=== PATIENT | female | born 1950 | race Caucasian/White ===

== ENCOUNTER → 2017-04-21 | Outpatient (CLI) | payer MEDICARE, OTHER ==
--- NOTE | 2017-04-21 14:53 | Diagnostic Imaging Report ---
PROCEDURE:URINARY BLADDER ULTRASOUND COMPARISON:None. INDICATIONS:Chronic Kidney Disease Stage 3 CONCLUSION: Please refer to renal ultrasound performed at the same date and time for full dictated report. Curry Infante M.D. Dictated by: Curry Infante M.D. on 04/21/2017 at 14:53 Electronically approved by: Curry Infante M.D. on 04/21/2017 at 14:53
--- NOTE | 2017-04-21 14:53 | Diagnostic Imaging Report ---
PROCEDURE:US RETROPERITONEAL ( KIDNEY ). COMPARISON:None. INDICATIONS:Chronic Kidney Disease Stage 3 TECHNIQUE: Clemente-scale and color sonographic images of the bilateral kidneys and bladder where obtained in transverse and longitudinal planes. FINDINGS: RIGHT KIDNEY: 9.2 cm, cortex 1.5 cm Cysts: 1.9 x 1.5 x 1.8 cm cystic, anechoic nonvascular lesion in the mid lateral aspect Solid masses: None Stones: None Hydronephrosis: None Echogenicity: Normal LEFT KIDNEY: 8.9 cm, cortex 1.5 cm Cysts: None Solid masses: None Stones: None Hydronephrosis: None Echogenicity: Normal Bladder: 1.6 x 0.7 x 1.6 cm non-mobile focal solid lesion extending into the bladder lumen from the right lateral wall, which shows no vascularity or calcification. Bilateral ureteral jets are identified. Prevoid bladder volume 19.0 cc. Postvoid bladder volume 19.2 CC. CONCLUSION: 1. 1.6 cm non-mobile, focal lesion extending into the lumen from the right lateral bladder wall, which is indeterminate. Direct visualization with endoscopy is recommended to exclude neoplasm, such as TCC. 2. Left kidney and the lower limit of normal. Normal bilateral renal cortical echogenicity. 3. 1.9 cm simple appearing cyst in the right kidney. 4. No significant postvoid residual. Curry Infante M.D. Dictated by: Curry Infante M.D. on 04/21/2017 at 14:53 Electronically approved by: Curry Infante M.D. on 04/21/2017 at 14:53
== END ==
LOC: US 11:53
PROVIDERS: ATTEND Internal Medicine Nephrology
DX: N18.3 Chronic kidney disease, stage 3 (moderate) (principal); N20.0 Calculus of kidney
CPT/HCPCS: 76770; 76857

== ENCOUNTER → 2017-05-16 | Outpatient (CLI) | payer MEDICARE, OTHER ==
--- NOTE | 2017-05-16 16:47 | Diagnostic Imaging Report ---
PROCEDURE: CT ABDOMEN AND PELVIS WITHOUT CONTRAST COMPARISON:Renal ultrasound . INDICATIONS:GROSS HEMATURIA TECHNIQUE: Axial CT images through the abdomen and pelvis were obtained without IV contrast. Coronal and sagittal reformations were created. FINDINGS: Lung bases: Bibasilar chronic atelectasis or scar. The heart is normal in size and contains pacer/defibrillator wires. There is mild eventration of left diaphragm. Distal esophagus is normal. Liver: Normal attenuation without mass. Spleen: Normal in size without mass. Biliary: Nonvisualized and is likely absent. No biliary ductal dilatation Pancreas: No mass or ductal dilatation. Adrenal Glands: No mass. Kidneys: Right kidney: Calcification in the lower pole measures 4 mm. Low attenuating lesion in the lower pole measures 2 cm suggestive of a cyst. No hydronephrosis. Left kidney: There is a punctate calcification in the upper pole. No renal mass. No hydronephrosis. Vasculature: The aorta is diffusely calcified. Maximum diameter is 2.5 cm. The iliac arteries are calcified but not aneurysmally dilated. GI: The stomach is normal. Small bowel is normal in diameter with normal wall thickness. Mild/moderate of stool throughout the large bowel. The appendix is not visualized. Peritoneum/Retroperitoneum: No free fluid or fluid collection. No lymphadenopathy. Bladder: Well-distended. No intraluminal calculi or mural thickening. Reproductive organs: The uterus is absent. There are no adnexal masses. Musculoskeletal: Spinal stimulator is present entering at L2-3. There is dextroscoliosis of the lumbar spine with the apex at L3-4. The there is grade 1 anterolisthesis of L3 on L4 of approximately 6 mm. No pars defects. No compression deformities. Intramedullary mariano and pin are present in the proximal left femur. The hardware is intact without evidence of loosening. The bones are diffusely demineralized. There are no destructive lesions. Multiple soft tissue calcifications are present throughout the posterior pelvis. CONCLUSION: 1. Bilateral intrarenal calculi. No obstructive uropathy. 2. Low attenuating lesion in the right kidney suggestive of a cyst. 3. Medical devices as described above. 4. Aortic ectasia and atherosclerosis. 5. Bibasilar atelectasis or scarring. Dictated by: Palmer Silva M.D. on 05/16/2017 at 16:47 Electronically approved by: Palmer Silva M.D. on 05/16/2017 at 16:47
== END | disposition home or self-care (01) ==
LOC: CT 11:27
PROVIDERS: ATTEND Urology
DX: R31.0 Gross hematuria (principal); Z87.442 Personal history of urinary calculi; N20.0 Calculus of kidney; N39.0 Urinary tract infection, site not specified; D41.4 Neoplasm of uncertain behavior of bladder; N39.41 Urge incontinence; I77.819 Aortic ectasia, unspecified site
CPT/HCPCS: 74176

== ENCOUNTER 2017-06-06 10:00 | Observation (INO) | payer MEDICARE, OTHER ==
[2017-06-06] VITALS (34 sets, daily range): BP systolic 55–157; BP diastolic 28–93
[~2017-06-06] VITALS: Ht 166.4 cm; Wt 45.8 kg
--- OUTSIDE RECORDS SUMMARY | 2017-06-06 10:02 | XMS REPORT ---
Author Author [facility] Address Unknown Phone Unavailable Care Team Providers Care Refinery Operator Visbreaking Name Role Phone PO GUALLPA Unavailable Unavailable MICHELLE OLMOS Unavailable Unavailable Problems This patient has no known problems. Allergies, Adverse Reactions, Alerts This patient has no known allergies or adverse reactions. Medications This patient has no known medications. Results Test Description Test Time Test Comments Text Results Atomic Results Result Comments CT ABDOMEN/PELVIS WO [place] [address] Patient Name: PAU LOPEZ MR #: [id number] : 1950 Age/Sex: 67/F Req # : [id number] [facility] Physician: Ordered by: PO GUALLPA MD Report #: [id number] Location: CT Room/Bed: Procedure: [id number] CT/CT ABDOMEN/PELVIS WO Exam Date: 05/16/17 Exam Time: 1150 REPORT STATUS: Signed PROCEDURE: CT ABDOMEN AND PELVIS WITHOUT CONTRAST COMPARISON: Renal ultrasound . INDICATIONS: GROSS HEMATURIA TECHNIQUE: Axial CT images through the abdomen and pelvis were obtained without IV contrast. Coronal and sagittal reformations were created. FINDINGS: Lung bases: Bibasilar chronic atelectasis or scar. The heart is normal in size and contains pacer/defibrillator wires. There is mild eventration of left diaphragm. Distal esophagus is normal. Liver: Normal attenuation without mass. Spleen: Normal in size without mass. Biliary: Nonvisualized and is likely absent. No biliary ductal dilatation Pancreas: No mass or ductal dilatation. Adrenal Glands: No mass. Kidneys: Right kidney: Calcification in the lower pole measures 4 mm. Low attenuating lesion in the lower pole measures 2 cm suggestive of a cyst. No hydronephrosis. Left kidney: There is a punctate calcification in the upper pole. No renal mass. No hydronephrosis. Vasculature: The aorta is diffusely calcified. Maximum diameter is 2.5 cm. The iliac arteries are calcified but not aneurysmally dilated. GI: The stomach is normal. Small bowel is normal in diameter with normal wall thickness. Mild/ moderate of stool throughout the large bowel. The appendix is not visualized. Peritoneum/Retroperitoneum: No free fluid or fluid collection. No lymphadenopathy. Bladder: Well-distended. No intraluminal calculi or mural thickening. Reproductive organs: The uterus is absent. There are no adnexal masses. Musculoskeletal: Spinal stimulator is present entering at L2-3. There is dextroscoliosis of the lumbar spine with the apex at L3-4. The there is grade 1 anterolisthesis of L3 on L4 of approximately 6 mm. No pars defects. No compression deformities. Intramedullary mariano and pin are present in the proximal left femur. The hardware is intact without evidence of loosening. The bones are diffusely demineralized. There are no destructive lesions. Multiple soft tissue calcifications are present throughout the posterior pelvis. CONCLUSION: 1. Bilateral intrarenal calculi. No obstructive uropathy. 2. Low attenuating lesion in the right kidney suggestive of a cyst. 3. Medical devices as described above. 4. Aortic ectasia and atherosclerosis. 5. Bibasilar atelectasis or scarring. Dictated by: Jarett Silva M.D. on 05/16/2017 at 16:47 Electronically approved by: Jarett Silva M.D. on 05/16/2017 at 16:47 Dictated By: JARETT SILVA MD 46 Transcribed By : SUSAN on 05/16/171646 COPY TO: PO GUALLPA MD RENAL RETROPERITONEAL COMP [place] [address] Patient Name: PAU LOPEZ MR #: [id number] : 1950 Age/Sex: 67/F Req #: [id number] [facility] Physician: Ordered by: MICHELLE OLMOS MD Report #: [id number] Location: Room/Bed: Procedure: [id number] US/US RENAL RETROPERITONEAL COMP Exam Date: 04/21/17 Exam Time: 1213 REPORT STATUS: Signed PROCEDURE : US RETROPERITONEAL ( KIDNEY ). COMPARISON: None. INDICATIONS: Chronic Kidney Disease Stage 3 TECHNIQUE: Clemente-scale and color sonographic images of the bilateral kidneys and bladder where obtained in transverse and longitudinal planes. FINDINGS: RIGHT KIDNEY: 9.2 cm, cortex 1.5 cm Cysts: 1.9 x 1.5 x 1.8 cm cystic, anechoic nonvascular lesion in the mid lateral aspect Solid masses: None Stones: None Hydronephrosis: None Echogenicity: Normal LEFT KIDNEY: 8.9 cm, cortex 1.5 cm Cysts: None Solid masses: None Stones: None Hydronephrosis: None Echogenicity: Normal Bladder: 1.6 x 0.7 x 1.6 cm non-mobile focal solid lesion extending into the bladder lumen from the right lateral wall, which shows no vascularity or calcification. Bilateral ureteral jets are identified. Prevoid bladder volume 19.0 cc. Postvoid bladder volume 19.2 CC. CONCLUSION: 1. 1.6 cm non-mobile, focal lesion extending into the lumen from the right lateral bladder wall, which is indeterminate. Direct visualization with endoscopy is recommended to exclude neoplasm, such as TCC. 2. Left kidney and the lower limit of normal. Normal bilateral renal cortical echogenicity. 3. 1.9 cm simple appearing cyst in the right kidney. 4. No significant postvoid residual. Ventura Infante M.D. Dictated by: Ventura Infante M.D. on 04/21/2017 at 14:53 Electronically approved by: Ventura Infante M.D. on 04/21/2017 at 14:53 Dictated By: VENTURA INFANTE MD 52 Transcribed By: SUSAN on 04/21/171452 COPY TO: MICHELLE OLMOS MD US PELVIC (NON OB) BROWN OR F/U [place] [address] Patient Name: PAU LOPEZ MR #: [id number] : 1950 Age/Sex: 67/F Req #: [id number] Adm Physician: Ordered by: MICHELLE OLMOS MD Report #: [id number] Location: Room/Bed: Procedure: [id number] US/US PELVIC (NON OB) BROWN OR F/U Exam Date: 04/21/17 Exam Time: 1245 REPORT STATUS: Signed PROCEDURE : URINARY BLADDER ULTRASOUND COMPARISON: None. INDICATIONS: Chronic Kidney Disease Stage 3 CONCLUSION: Please refer to renal ultrasound performed at the same date and time for full dictated report. Ventura Infante M.D. Dictated by: Ventura Infante M.D. on 04/21/2017 at 14:53 Electronically approved by: Ventura Infante M.D. on 2017 at 14:53 Dictated By: VENTURA INFANTE MD 52 Transcribed By: SUSAN on 1452 COPY TO: MICHELLE OLMOS MD
--- OUTSIDE RECORDS SUMMARY | 2017-06-06 10:02 | XMS REPORT | Clinical Summary ---
Author Author [facility] Address Unknown Phone Unavailable Care Team Providers Care Roll Line Operator Name Role Phone Jay Griffin MD PCP Allergies Not on File Current Medications Not on file Active Problems Not on file Encounters Date Type Specialty Care Team Description 11/04/2016 Transcribe Access Mariela Miranda, Primary malignant Orders neoplasm of bronchus of left lower lobe (Primary Dx) 10/14/2016 Hospital Radiology Mariela Miranda, Primary malignant Encounter neoplasm of bronchus of left lower lobe 10/08/2016 Transcribe Access Mariela Miranda, Primary malignant Orders neoplasm of bronchus of left lower lobe (Primary Dx) after 06/05/2016 Social History Tobacco Use Types Packs/Day Years Used Date Never Assessed Sex Assigned at Date Recorded Not on file Last Filed Vital Signs Not on file Plan of Treatment Health Maintenance Due Date Last Done Comments COLONOSCOPY 1999 MAMMOGRAM 1999 ZOSTER VACCINE 2009 PNEUMOCOCCAL 2014 POLYSACCHARIDE VACCINE AGE 65 AND OVER PNEUMOCOCCAL-13 2014 INFLUENZA VACCINE 10/05/2016 Results * PET/CT Skull Base To Mid Thigh (10/14/2016 11:40 AM) Specimen Performing Laboratory [facility] [address] [place] [address] Narrative PROCEDURE: PET CT SKULL BASE TO MID THIGH INDICATION: C34.32 Malignant neoplasm of lower lobeleft bronchus or lung, C34.32 COMPARISON: None available at this institution TECHNIQUE: Blood glucose measured at the time of injection was 94 mg/dL. The patient was then intravenously injected with 13 mCi of 18F-FDG. Approximately one hour later, PET images were acquired from the skull base to the mid thighs. Corresponding, low dose, non-contrast CT scanning was performed as part of the attenuation correction process. FINDINGS: Head and neck: There is a subtle lesion in the posterior left parotid gland in close proximity to the adjacent mastoid process that demonstrates mild to moderate FDG uptake with an SUV of 4.2. Remainder of the imaged head and neck reveals no other FDG-avid lesions. Prominent metabolism is noted in the posterior neck musculature. Chest: Opacity in the posterior right lung base demonstrates diffuse mild FDG uptake with an SUV of 2.1. Volume loss in the left lung is noted suggestive of prior resection. Remaining lung padilla reveals no other FDG-avid lesions. Nonspecific mediastinal lymph nodes demonstrate faint to mild FDG uptake, most pronounced in the precarinal station with an SUV of 2.1. There is an area of mild FDG uptake in the mid esophagus and possibly a adjacent paraesophageal lymph node demonstrating mild uptake with an SUV of 2.9, likely inflammatory. Metabolic activity is mildly prominent in the neo without adenopathy; SUVs reach up to 2.2, likely inflammatory. No suspicious FDG uptake is seen in the breasts and axillae. Cardiac pacing device is present. Abdomen: The liver, spleen, pancreas, and adrenals demonstrate physiological metabolism without focal lesions. Gastrointestinal metabolism is within normal limits. Excreted tracer is noted in the kidneys and ureters. No suspicious retroperitoneal or mesenteric lymphadenopathy is seen. Pelvis: The uterus is absent. No suspicious pelvic masses or lymphadenopathy is identified. Subcutaneous calcified nodule in the right gluteal region demonstrates mild FDG uptake with an SUV of 3.3, likely an inflammatory granuloma. Neural stimulator is present. Musculoskeletal: Within the left scapula there are discrete areas of moderate to marked hypermetabolism localizing to the acromion and superior notch with SUVs reaching up to 9.4. The left 3rd, 4th, and 7th ribs demonstrate abnormal FDG uptake with SUVs reaching up to 6.6. Faint FDG uptake is noted in the left 5th rib. All of these areas of hypermetabolism localize within the medullary space of the bony structures without definite cortical abnormalities. Left total hip arthroplasty is noted with diffusely prominent surrounding soft tissue metabolism, likely inflammatory versus accentuated skeletal muscle activation. IMPRESSION: 1.Multiple osseous lesions involving the left scapula and several left ribs demonstrate abnormal hypermetabolism, compatible with malignancy. 2.Opacity in the right lung base demonstrating mild hypermetabolism favors an inflammatory/infectious etiology. However underlying neoplasm cannot be excluded in this clinical setting. 3.Nonspecific mediastinal lymph nodes demonstrate mild hypermetabolism, favoring a reactive process. 4.Mildly hypermetabolic lesion in the left parotid gland suggests an inflammatory lymph node, but should be followed. [facility]-[id number] Procedure Note [facility], Radiology Results Incoming - 10/14/2016 6:08 PM CDT PROCEDURE: PET CT SKULL BASE TO MID THIGH INDICATION: C34.32 Malignant neoplasm of lower lobe left bronchus or lung, C34.32 COMPARISON: None available at this institution TECHNIQUE: Blood glucose measured at the time of injection was 94 mg/dL. The patient was then intravenously injected with 13 mCi of 18F-FDG. Approximately one hour later, PET images were acquired from the skull base to the mid thighs. Corresponding, low dose, non-contrast CT scanning was performed as part of the attenuation correction process. FINDINGS: Head and neck: There is a subtle lesion in the posterior left parotid gland in close proximity to the adjacent mastoid process that demonstrates mild to moderate FDG uptake with an SUV of 4.2. Remainder of the imaged head and neck reveals no other FDG-avid lesions. Prominent metabolism is noted in the posterior neck musculature. Chest: Opacity in the posterior right lung base demonstrates diffuse mild FDG uptake with an SUV of 2.1. Volume loss in the left lung is noted suggestive of prior resection. Remaining lung padilla reveals no other FDG-avid lesions. Nonspecific mediastinal lymph nodes demonstrate faint to mild FDG uptake, most pronounced in the precarinal station with an SUV of 2.1. There is an area of mild FDG uptake in the mid esophagus and possibly a adjacent paraesophageal lymph node demonstrating mild uptake with an SUV of 2.9, likely inflammatory. Metabolic activity is mildly prominent in the neo without adenopathy; SUVs reach up to 2.2, likely inflammatory. No suspicious FDG uptake is seen in the breasts and axillae. Cardiac pacing device is present. Abdomen: The liver, spleen, pancreas, and adrenals demonstrate physiological metabolism without focal lesions. Gastrointestinal metabolism is within normal limits. Excreted tracer is noted in the kidneys and ureters. No suspicious retroperitoneal or mesenteric lymphadenopathy is seen. Pelvis: The uterus is absent. No suspicious pelvic masses or lymphadenopathy is identified. Subcutaneous calcified nodule in the right gluteal region demonstrates mild FDG uptake with an SUV of 3.3, likely an inflammatory granuloma. Neural stimulator is present. Musculoskeletal: Within the left scapula there are discrete areas of moderate to marked hypermetabolism localizing to the acromion and superior notch with SUVs reaching up to 9.4. The left 3rd, 4th, and 7th ribs demonstrate abnormal FDG uptake with SUVs reaching up to 6.6. Faint FDG uptake is noted in the left 5th rib. All of these areas of hypermetabolism localize within the medullary space of the bony structures without definite cortical abnormalities. Left total hip arthroplasty is noted with diffusely prominent surrounding soft tissue metabolism, likely inflammatory versus accentuated skeletal muscle activation. IMPRESSION: 1. Multiple osseous lesions involving the left scapula and several left ribs demonstrate abnormal hypermetabolism, compatible with malignancy. 2. Opacity in the right lung base demonstrating mild hypermetabolism favors an inflammatory/infectious etiology. However underlying neoplasm cannot be excluded in this clinical setting. 3. Nonspecific mediastinal lymph nodes demonstrate mild hypermetabolism, favoring a reactive process. 4. Mildly hypermetabolic lesion in the left parotid gland suggests an inflammatory lymph node, but should be followed. [facility]-[id number] * POC glucose (10/14/2016 9:46 AM) Component Value Ref Range POC glucose 94 65 - 100 mg/dL Comment: Meter ID: [id number] Case Mgr: Jay Ash Specimen Performing Laboratory [facility] DEPARTMENT OF PATHOLOGY AND GENOMIC MEDICINE [address] [place] [phone] after 06/05/2016 Insurance Payer Benefit Subscriber ID Type Phone Address Plan / Group COLONIAL COLONIAL xxxxxxxxx Commercial DAVID MEDICARE MEDICARE xxxxxxxxxx Medicare [place], [place] PART A AND B SHAZIA LOPEZ Personal/F Self 1950 Home: [address] [place] [address]
[2017-06-06 10:59] LABS: BASOPHILS # (AUTO) 0.1 (0.0-0.1); EOSINOPHILS # (AUTO) 0.2 (0.0-0.4); EOSINOPHILS % 2.2 % (0.0-6.0); HEMATOCRIT 34.1 % (34.2-44.1); HEMOGLOBIN 11.1 g/dL (12.0-16.0); LYMPHOCYTES # (AUTO) 3.5 (1.0-3.2); LYMPHOCYTES % 51.3 % (18.0-39.1); MEAN CORPUSCULAR HEMOGLOBIN 30.9 pg (28-32); MEAN CORPUSCULAR HGB CONC 32.6 g/dL (31-35); MONOCYTES # (AUTO) 0.6 (0.2-0.8); MONOCYTES % 8.5 % (4.4-11.3); NEUTROPHILS # (AUTO) 2.5 (2.1-6.9); NEUTROPHILS % 36.9 % (38.7-80.0); PLATELET COUNT 343 x10e3/uL (140-360); RED BLOOD COUNT 3.59 x10e6/uL (3.6-5.1); RED CELL DISTRIBUTION WIDTH 12.6 % (11.7-14.4)
[2017-06-06 11:25] LABS: ALANINE AMINOTRANSFERASE 7 IU/L (0-55); ALBUMIN 3.3 g/dL (3.5-5.0); ALBUMIN/GLOBULIN RATIO 0.9 (0.8-2.0); ALKALINE PHOSPHATASE 63 IU/L (40-150); BLOOD UREA NITROGEN 10 mg/dL (7-26); BUN/CREATININE RATIO 11 (6-25); CARBON DIOXIDE 26 mmol/L (22-29); CHLORIDE 104 mmol/L (98-107); CHOLESTEROL 191 MD/DL (0-199); CREATININE, SERUM 0.87 mg/dL (0.57-1.11); EST GLOMERULAR FILTRATION RATE > 60 ML/MIN (60-); GLUCOSE 89 mg/dL (74-118); HDL CHOLESTEROL 64 MG/DL (40-60); LDL CHOLESTEROL 104 MG/DL (60-130); SODIUM 138 mmol/L (136-145); TRIGLYCERIDES 116 MG/DL (0-149)
[2017-06-06] MEDS ORDERED: LIDOCAINE HCL 2% LOCAL 20 ML VIAL ONE ×2 (12:30→13:22)
[2017-06-06] MEDS ORDERED: IOPAMIDOL 370 MG/ML 200 ML INFUS..BTL INJ ONE (12:30)
[2017-06-06] MEDS ORDERED: SODIUM CHLORIDE 0.9% 1000ML 2,000 ML ONE (12:30)
[2017-06-06] MEDS ORDERED: MIDAZOLAM HCL 2 MG/2 ML VIAL ONE ×2 (12:36→13:25)
[2017-06-06] MEDS ORDERED: SODIUM CHLORIDE 0.9% 1000ML 1,000 ML ONE ×2 (12:36→17:57)
[2017-06-06] MEDS ORDERED: FENTANYL CITRATE/PF 100MCG/2 ML INJ ONE (12:36)
[2017-06-06] MEDS ORDERED: HEPARIN SOD (PORCINE) 1000 UNIT/ML 30ML ONE (13:25)
[2017-06-06] MEDS ORDERED: HYDROMORPHONE 1MG/1ML INJ ONE (16:25)
[2017-06-06] MEDS: SODIUM CHLORIDE 0.9% 1000ML 1,000 ML IV SCH (16:45)
[2017-06-06] MEDS: HYDROMORPHONE 1MG/1ML INJ IV PRN ×3 (16:45→23:34)
--- OUTSIDE RECORDS SUMMARY | 2017-06-06 18:17 | XMS REPORT | Clinical Summary ---
Author Author [facility] Address Unknown Phone Unavailable Care Team Providers Care Cte Teacher Name Role Phone Jay Griffin MD PCP [...] Thigh (10/14/2016 11:40 AM) Specimen Performing Laboratory [facility] [address] [place] [address] Narrative PROCEDURE: PET CT SKULL BASE TO [...] inflammatory lymph node, but should be followed. [facility]-[id number] Procedure Note [facility], Radiology Results Incoming - 10/14/2016 6:08 PM [...] inflammatory lymph node, but should be followed. [facility]-[id number] * POC glucose (10/14/2016 9:46 AM) Component Value Ref Range POC glucose 94 65 - 100 mg/dL Comment: Meter ID: [id number] Seaming Inspector: Jay Ash Specimen Performing Laboratory [facility] DEPARTMENT OF PATHOLOGY AND GENOMIC MEDICINE [address] [place] [id number] after 06/05/2016 Insurance Payer Benefit Subscriber ID Type Phone Address Plan / Group COLONIAL COLONIAL xxxxxxxxx Commercial DAVID MEDICARE MEDICARE xxxxxxxxxx Medicare [place], [place] PART A AND B SHAZIA LOPEZ Personal/F Self 1950 Home: [address] [place] [address]
--- NOTE | 2017-06-06 21:42 | Operative Report ---
DATE OF PROCEDURE: June 06, 2017 CARDIAC PHYSIOTHERAPY AIDE PROCEDURE INDICATION: Coronary artery disease, abnormal stress test. PROCEDURES PERFORMED: Left heart catheterization, selective coronary angiography. RECOMMENDATIONS: The patient is cleared for bladder surgery and will require staged intervention on her left anterior descending artery as well as the right iliac artery. PROCEDURE: Access was attempted in the right common femoral artery. A sheath was placed. 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 Further procedures from the right side were aborted. Left groin access was obtained. A 6-Danish sheath was placed. Diagnostic coronary angiogram revealed a patent left main. Left anterior descending artery mid stent was present with distal 70% in-stent restenosis extending into the [place] LAD. This was a heavily calcified vessel, type C lesion. Circumflex mild 20% to 30% stenosis. Right coronary artery proximal 50% stenosis. Remaining vessels had mild disease. No intervention was deemed necessary at this point with the coronary system. Sheaths were removed under manual pressure. Patient was discharged home same day, cleared for surgery with instructions to follow up for staged intervention on the left anterior descending artery. Job#: [id number] EV
[2017-06-07] MEDS: SODIUM CHLORIDE 0.9% 1000ML 1,000 ML IV SCH (00:53)
[2017-06-07 03:07] VITALS: BP 142/69
[2017-06-07 04:00] VITALS: BP 102/55
[2017-06-07] MEDS: HYDROMORPHONE 1MG/1ML INJ IV PRN ×2 (06:22→11:53)
[2017-06-07 08:08] VITALS: BP 129/61
[2017-06-07 11:06] VITALS: BP 129/61
[2017-06-07 12:38] VITALS: BP 113/53
[2017-06-07 14:00] LABS: BASOPHILS # (AUTO) 0.1 (0.0-0.1); BASOPHILS % 0.5 % (0.0-1.0); EOSINOPHILS # (AUTO) 0.1 (0.0-0.4); EOSINOPHILS % 0.5 % (0.0-6.0); HEMATOCRIT 25.7 % (34.2-44.1); HEMOGLOBIN 8.4 g/dL (12.0-16.0); LYMPHOCYTES % 37.8 % (18.0-39.1); MEAN CORPUSCULAR HEMOGLOBIN 31.1 pg (28-32); MEAN CORPUSCULAR HGB CONC 32.7 g/dL (31-35); MEAN CORPUSCULAR VOLUME 95.2 fL (81-99); MONOCYTES # (AUTO) 0.8 (0.2-0.8); MONOCYTES % 7.7 % (4.4-11.3); NEUTROPHILS # (AUTO) 5.6 (2.1-6.9); NEUTROPHILS % 53.3 % (38.7-80.0); PLATELET COUNT 281 x10e3/uL (140-360); RED CELL DISTRIBUTION WIDTH 12.8 % (11.7-14.4)
--- NOTE | 2017-06-07 14:43 | Discharge Summary ---
ADMITTING DIAGNOSES 1. Chest pain. 2. Abnormal stress test. DISCHARGE DIAGNOSES 1. Coronary artery disease. 2. Peripheral arterial disease. 3. Left groin hematoma. HOSPITAL COURSE: This is a 67-year-old woman with coronary artery disease who presented for planned cardiac catheterization. 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 Access was, therefore, obtained of the left common femoral artery. Cardiac catheterization was performed, which revealed 70% distal in-stent restenosis in the LAD extending into the [place] LAD. There was mild 20% to 30% stenosis in the circumflex as well as 50% stenosis in the right coronary artery. After sheath removal, the patient developed a left groin hematoma. Manual pressure was held until hemostasis was achieved. The patient was observed in the hospital overnight. The patient was discharged home the following day in stable condition after ambulation. DISPOSITION: Discharge home. MEDICATIONS: Please see medication reconciliation. FOLLOWUP: With Dr. Laughlin in 2 weeks. RESTRICTIONS: No heavy lifting, no driving. Do not soak procedure site in water. DIET: Heart healthy, 2 g sodium diet. KAILASH DEGROOT MD Job#: [id number]
[2017-06-07 16:26] VITALS: BP 106/57
== END 2017-06-07 17:41 | disposition home or self-care (01) ==
LOC: CATH LAB 10:00 → EDSTATUS 12:00 → MED/SURG 18:15 → IMCU 06-07 00:43
PROVIDERS: ADMIT Internal Medicine Interventional Cardiology; ATTEND Internal Medicine Interventional Cardiology
DX: I25.10 Atherosclerotic heart disease of native coronary artery without angina pectoris (principal); I73.9 Peripheral vascular disease, unspecified; Z95.5 Presence of coronary angioplasty implant and graft; I97.610 Postprocedural hemorrhage of a circulatory system organ or structure following a cardiac catheterization
CPT/HCPCS: 36415 ×2; 77002; 80053; 80061; 85025 ×2; 93458; C1769 ×2; G0378 ×2; J1170 ×2; J2001; J2250; J7030 ×2; Q9967; 36140; J1644